=== PATIENT | female | born 1995 | race Hispanic/Latino ===

== ENCOUNTER 2017-04-29 21:44 | Emergency (ER) | payer OTHER ==
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
[2017-04-30] MEDS ORDERED: ZOFRAN ODT PO ONE (01:24)
[2017-04-30] MEDS ORDERED: MOTRIN PO ONE (01:25)
[2017-04-30] MEDS ORDERED: FLEXERIL PO ONE (01:25)
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
[2017-04-30 01:59] VITALS: BP 131/78
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
== END 2017-04-30 01:59 | disposition home or self-care (01) ==
LOC: ED 21:44
DX: F07.81 Postconcussional syndrome (principal); M79.631 Pain in right forearm; M25.561 Pain in right knee; V49.49XA Driver injured in collision with other motor vehicles in traffic accident, initial encounter; Y93.9 Activity, unspecified; Y92.9 Unspecified place or not applicable; Y99.9 Unspecified external cause status
CPT/HCPCS: 70450; 72125; 81025; Q0162

== ENCOUNTER 2017-08-23 12:18 | Emergency (ER) | payer MEDICAID, OTHER ==
[2017-08-23 13:11] VITALS: BP 129/82
[2017-08-23] MEDS ORDERED: TYLENOL PO ONE (18:21)
--- NOTE | 2017-08-23 18:29 | Emergency Department Report ---
- General Chief Complaint: Upper Respiratory Infection Stated Complaint: FLU LIKE S/S Time Seen by Provider: 08/23/17 18:06 Source: patient Mode of arrival: Ambulatory Limitations: No Limitations - History of Present Illness Initial Comments: pt is a 22 w/f who presents for uri cough green sputum, head congestion ear pain x 1 week, symptoms worse at night with cough and wheezing and noc fever subjection unknown quantification per patient is afebrile in triate today pt is 17 weeks . There is no nausea or vomiting. MD Complaint: cough, rhinorrhea, nasal congestion Onset/Timin -: week(s) Severity: moderate Severity scale (0 -10): 5 Consistency: intermittent Improves With: nothing Worsens With: nothing Context: sick contacts Associated Symptoms: fever, rhinorrhea, nasal congestion, cough. denies: myalgias, headache, nausea, vomiting, diarrhea, dysuria - Related Data Previous Rx's Medication Instructions Recorded Last Taken Type Cyclobenzaprine [Flexeril] 10 mg PO TID PRN #10 tablet 04/30/17 Unknown Rx Ibuprofen [Motrin] 800 mg PO Q8HR PRN #25 tablet 04/30/17 Unknown Rx Ondansetron [Zofran Odt] 4 mg PO Q8H PRN #10 tab.rapdis 04/30/17 Unknown Rx ALBUTEROL Inhaler [ProAir HFA 2 puff IH QID PRN #1 inhalation 08/23/17 Unknown Rx Inhaler] Acetaminophen 650 mg PO QID PRN #60 tablet 08/23/17 Unknown Rx Azithromycin [Zithromax Z-ZANDER] 250 mg PO DAILY #6 tab 08/23/17 Unknown Rx predniSONE [Deltasone] 40 mg PO QDAY #10 tab 08/23/17 Unknown Rx Allergies Allergy/AdvReac Type Severity Reaction Status Date / Time ceftazidime pentahydrate Allergy Unknown Verified 08/23/17 13:07 [From [facility]] ED Review of Systems ROS: Stated complaint: FLU LIKE S/S Other details as noted in HPI Constitutional: denies: chills, fever Eyes: denies: eye pain, eye discharge, vision change ENT: ear pain, congestion Respiratory: cough, wheezing. denies: shortness of breath Cardiovascular: denies: chest pain, palpitations Endocrine: no symptoms reported Gastrointestinal: as per HPI Genitourinary: denies: urgency, dysuria, discharge Musculoskeletal: denies: back pain, joint swelling, arthralgia Skin: denies: rash, lesions Neurological: denies: headache, weakness, paresthesias Psychiatric: denies: anxiety, depression Hematological/Lymphatic: denies: easy bleeding, easy bruising ED Past Medical Hx - Past Medical History Previous Medical History?: No - Surgical History Additional Surgical History: left ear - Social History Smoking Status: Never Smoker Substance Use Type: None - Medications Home Medications: Home Medications Medication Instructions Recorded Confirmed Last Taken Type Cyclobenzaprine [Flexeril] 10 mg PO TID PRN #10 tablet 04/30/17 Unknown Rx Ibuprofen [Motrin] 800 mg PO Q8HR PRN #25 tablet 04/30/17 Unknown Rx Ondansetron [Zofran Odt] 4 mg PO Q8H PRN #10 tab.rapdis 04/30/17 Unknown Rx ALBUTEROL Inhaler [ProAir HFA 2 puff IH QID PRN #1 inhalation 08/23/17 Unknown Rx Inhaler] Acetaminophen 650 mg PO QID PRN #60 tablet 08/23/17 Unknown Rx Azithromycin [Zithromax Z-ZANDER] 250 mg PO DAILY #6 tab 08/23/17 Unknown Rx predniSONE [Deltasone] 40 mg PO QDAY #10 tab 08/23/17 Unknown Rx ED Physical Exam - General Limitations: No Limitations - Head Head exam: Present: atraumatic, normocephalic - Eye Eye exam: Present: PERRL, EOMI Pupils: Present: normal accommodation - ENT ENT exam: Present: mucous membranes moist, normal external ear exam - Expanded ENT Exam Expanded TM/Canal exam: Erythema: Right TM, Left TM, Canal Tenderness: Right TM, Left TM Mouth exam: Absent: trismus Throat exam: Positive: tonsillar erythema. Negative: tonsillomegaly, tonsillar exudate, R peritonsillar mass, L peritonsillar mass - Neck Neck exam: Present: normal inspection, full ROM. Absent: tenderness, lymphadenopathy, thyromegaly - Respiratory Respiratory exam: Present: normal lung sounds bilaterally. Absent: respiratory distress, wheezes, rhonchi, stridor, chest wall tenderness - Cardiovascular Cardiovascular Exam: Present: regular rate, normal rhythm, normal heart sounds. Absent: systolic murmur, diastolic murmur, rubs, gallop - GI/Abdominal GI/Abdominal exam: Present: soft, normal bowel sounds. Absent: distended, tenderness, guarding, rebound, rigid, mass, bruit, hernia - Rectal Rectal exam: Present: deferred - Extremities Exam Extremities exam: Present: normal inspection - Back Exam Back exam: Present: normal inspection - Neurological Exam Neurological exam: Present: alert, oriented X3 - Psychiatric Psychiatric exam: Present: normal affect, normal mood - Skin Skin exam: Present: warm, dry, intact, normal color. Absent: rash ED Course Vital Signs 08/23/17 13:08 Temperature 98 F Pulse Rate 104 H Respiratory 20 Rate Blood Pressure 129/82 O2 Sat by Pulse 98 Oximetry ED Medical Decision Making - Medical Decision Making pt is a 22 w/f who presents for uri cough green sputum, head congestion ear pain x 1 week, symptoms worse at night with cough and wheezing and noc fever subjection unknown quantification per patient is afebrile in triate today pt is 17 weeks . There is no nausea or vomiting. exam: bilat tm erythema and pain with movement nose; bilat turbinate erythema boggy clear post nasal drip pharynx: moderatre erythema no exudate no lesion no stridor uvula midline lungs clear bilat all lobes no wheezing, plan: tx for brochitis as pt has hx of same pt will follow up with pcp and OBGYN tomorrow for follow up , azithromycin she in 2nd trimester, prednisone, Guaifenesin tyelnol, pt verbalized agreement and understanding of same. Critical care attestation.: If time is entered above; I have spent that time in minutes in the direct care of this critically ill patient, excluding procedure time. ED Disposition Clinical Impression: Bronchitis URI (upper respiratory infection) Qualifiers: URI type: acute nasopharyngitis (common cold) Qualified Code(s): J00 - Acute nasopharyngitis [common cold] Disposition: - TO HOME OR SELFCARE Is pt being admited?: No Does the pt Need Aspirin: No Condition: Good Instructions: Chronic Bronchitis (ED) Prescriptions: Acetaminophen 650 mg PO QID PRN #60 tablet PRN Reason: pain / fever ALBUTEROL Inhaler [ProAir HFA Inhaler] 2 puff IH QID PRN #1 inhalation PRN Reason: Shortness Of Breath Azithromycin [Zithromax Z-ZANDER] 250 mg PO DAILY #6 tab predniSONE [Deltasone] 40 mg PO QDAY #10 tab Referrals: PRIMARY CARE, [Referring] - 3-5 Days Forms: Work/School Release Form(ED) Time of Disposition: 18:41
== END 2017-08-24 05:46 | disposition home or self-care (01) ==
LOC: ED 12:18
DX: J40 Bronchitis, not specified as acute or chronic (principal); J00 Acute nasopharyngitis [common cold]; Z88.1 Allergy status to other antibiotic agents
CPT/HCPCS: 99282

== ENCOUNTER 2017-11-06 13:25 | Outpatient (CLI) | payer MEDICAID | END 2017-11-06 17:35 | disposition home or self-care (01) | LOC: TRG 13:25 → LAB 13:25 → TRG 17:24 | PROVIDERS: ATTEND Obstetrics & Gynecology | DX: O36.0130 Maternal care for anti-D [Rh] antibodies, third trimester, not applicable or unspecified (principal); Z3A.29 29 weeks gestation of pregnancy | CPT/HCPCS: 86850; 86900; 86901; 96372; J2790 ==

== ENCOUNTER 2017-12-16 15:28 | Outpatient (CLI) | payer MEDICAID ==
[2017-12-16] MEDS ORDERED: LACTATED RINGERS 500 ML IV ONE (16:19)
[2017-12-16 16:38] VITALS: BP 114/68
[2017-12-16 17:18] LABS: Bacteria,Urine 1+ /HPF (Negative); Bilirubin,Urine NEG (Negative); Blood,Urine NEG (Negative); Color,Urine Yellow (Yellow); Mucus,Urine 1+ /HPF; Protein,Urine <15 mg/dL mg/dL (Negative); Urobilinogen,Urine < 2.0 mg/dL (<2.0)
== END 2017-12-16 17:51 | disposition home or self-care (01) ==
LOC: TRG 15:28
PROVIDERS: ATTEND Obstetrics & Gynecology
DX: O47.03 False labor before 37 completed weeks of gestation, third trimester (principal); Z3A.35 35 weeks gestation of pregnancy
CPT/HCPCS: 59025; 81001

== ENCOUNTER 2018-01-29 20:02 | Inpatient (IN) | payer MEDICAID ==
[2018-01-29] MEDS ORDERED: XYLOCAINE 2% INFILTRATI ONE (21:37)
[2018-01-29] MEDS ORDERED: ePHEDrine SULFATE IV PRN (21:37)
[2018-01-29] MEDS ORDERED: MINERAL OIL PO PRN (21:37)
[2018-01-29] MEDS ORDERED: STADOL IV PRN (21:37)
[2018-01-29] MEDS ORDERED: BRETHINE IVP PRN (21:37)
[2018-01-29] MEDS ORDERED: ZOFRAN IV PRN (21:37)
[2018-01-29] MEDS ORDERED: BRETHINE SUB-Q PRN (21:37)
[2018-01-29] MEDS ORDERED: SUBLIMAZE IV PRN (21:37)
[2018-01-29] MEDS ORDERED: NARCAN 0.4 MG/1 ML IV PRN (21:37)
[2018-01-29 21:52] LABS: Hematocrit 36.5 % (30.3-42.9); Hemoglobin 12.2 gm/dl (10.1-14.3); Mean Corpuscular HGB Conc 33 % (30-34); Mean Corpuscular Hemoglobin 27 pg (28-32); Mean Corpuscular Volume 81 fl (79-97); Platelet Count 161 K/mm3 (140-440); Red Cell Distribution Width 14.6 % (13.2-15.2)
[2018-01-29] MEDS ORDERED: PITOCin/NS 30 UNIT/500ML 30 UNITS/500 ML BAG IV SCH (22:00)
[2018-01-29] MEDS: LACTATED RINGERS 1,000 ML IV SCH (22:00)
[2018-01-29] MEDS ORDERED: PITOCin/NS 20 UNIT/1000ML DRIP 20 UNITS/1,000 ML BAG IV SCH (22:00)
[2018-01-30] MEDS: LACTATED RINGERS 1,000 ML IV SCH ×2 (06:14→11:01)
--- NOTE | 2018-01-30 08:40 | History and Physical Report ---
History of Present Illness Date of examination: 01/30/18 Date of admission: 01/29/18 20:02 History of present illness: 22 yo ultrasound EDC 01/20/18 @ 41.3 weeks gestation presented last night for induction of labor. 3cm on admit Pitocin induction. 5cm currently. First trimester entry into care at 11 weeks gestation. care complicated by elevated 1hr GCT and negative 3hr GTT. [facility] followed for AC of 7%. GBS negative. Weak positive antibody. Past History Past Medical History: no pertinent history Past Surgical History: no surgical history Family/Genetic History: diabetes, heart disease, hypertension, other (lupus) Social history: single - Obstetrical History Expected Date of Delivery: 01/20/18 Actual Gestation: 41 Week(s) 3 Day(s) : 1 Medications and Allergies Allergies Allergy/AdvReac Type Severity Reaction Status Date / Time ceftazidime pentahydrate Allergy Severe Seizure Verified 12/16/17 16:17 [From [facility]] Home Medications Medication Instructions Recorded Confirmed Last Taken Type Cyclobenzaprine [Flexeril] 10 mg PO TID PRN #10 tablet 04/30/17 01/30/18 Unknown Rx Ibuprofen [Motrin] 800 mg PO Q8HR PRN #25 tablet 04/30/17 01/30/18 Unknown Rx Ondansetron [Zofran Odt] 4 mg PO Q8H PRN #10 tab.rapdis 04/30/17 01/30/18 Unknown Rx ALBUTEROL Inhaler [ProAir HFA 2 puff IH QID PRN #1 inhalation 08/23/17 01/30/18 Unknown Rx Inhaler] Acetaminophen 650 mg PO QID PRN #60 tablet 08/23/17 01/30/18 Unknown Rx Azithromycin [Zithromax Z-ZANDER] 250 mg PO DAILY #6 tab 08/23/17 01/30/18 Unknown Rx predniSONE [Deltasone] 40 mg PO QDAY #10 tab 08/23/17 01/30/18 Unknown Rx Active Meds: Active Medications Butorphanol Tartrate (Stadol) 2 mg IV Q2H PRN PRN Reason: Pain , Severe (7-10) Ephedrine Sulfate (Ephedrine Sulfate) 10 mg IV Q2M PRN PRN Reason: Hypotension Fentanyl (Sublimaze) 100 mcg IV Q2H PRN PRN Reason: Labor Pain Last Admin: 01/30/18 08:14 Dose: 100 mcg Lactated Ringer's (Lactated Ringers) 1,000 mls @ 125 mls/hr IV DIRECT LAURE Last Admin: 01/30/18 06:14 Dose: 125 mls/hr Oxytocin/Sodium Chloride (Pitocin/Ns 20 Unit/1000ml Drip) 20 units in 1,000 mls @ 125 mls/hr IV DIRECT LAURE Oxytocin/Sodium Chloride (Pitocin/Ns 30 Unit/500ml) 30 units in 500 mls @ 2 mls /hr IV TITR LAURE; Protocol Last Titration: 01/30/18 04:30 Dose: 10 ml/hr, 10 mls/hr Mineral Oil (Mineral Oil) 30 ml PO QHS PRN PRN Reason: Constipation Naloxone HCl (Narcan 0.4 Mg/1 Ml) 0.1 mg IV Q2MIN PRN PRN Reason: Res Rate </= 8 or 02 SAT < 92% Ondansetron HCl (Zofran) 4 mg IV Q8H PRN PRN Reason: Nausea And Vomiting Terbutaline Sulfate (Brethine) 0.25 mg SUB-Q ONCE PRN PRN Reason: Hyperstimulation/Hypertonicity Terbutaline Sulfate (Brethine) 0.25 mg IVP ONCE PRN PRN Reason: Hyperstimulation/Hypertonicity Review of Systems All systems: negative - Vital Signs Vital signs: Vital Signs Temp Pulse Resp BP 98.7 F 100 H 20 145/79 01/29/18 20:28 01/29/18 20:28 01/29/18 20:28 01/29/18 20:28 Temp Pulse Resp BP Pulse Ox 98.3 F 85 22 129/73 97 01/30/18 07:44 01/30/18 08:02 01/30/18 08:14 01/30/18 07:45 01/30/18 08:02 - Physical Exam Abdomen: Positive: normal appearance, soft. Negative: distention - Obstetrical FHR: category 1 Uterine Contraction Monitor Mode: External Cervical Dilatation: 5 Cervical Effacement Percentage: 80 station: 0 Uterine Contraction Frequency (min): 2 Uterine Contraction Duration: 40-60 Uterine Contraction Pattern: Regular Uterine Tone Measurement Phase: Resting Uterine Contraction Intensity: Moderate Results Result Diagrams: 01/29/18 21:20 Abnormal lab results 01/29/18 Range/Units 21:20 WBC 12.6 H (4.5-11.0) K/mm3 MCH 27 L (28-32) pg All other labs normal. Assessment and Plan A: IUP at 41 weeks Postdates Induction Active Labor P: AROM-clear Active Oracio't Pitocin
[2018-01-30] MEDS ORDERED: NARCAN 2 MG/2 ML IV PRN (11:23)
[2018-01-30] MEDS ORDERED: ePHEDrine SULFATE IV PRN (11:23)
[2018-01-30] MEDS ORDERED: fentaNYL-BUPIV 2 MCG/ML-0.125% 200 MCG/100 ML BAG EPIDURAL SCH (12:00)
--- NOTE | 2018-01-30 13:23 | Progress Note ---
Assessment and Plan A: IUP at 41 weeks Transitional labor Protracted Labor P: Increase Pitocin Primary C/S if same dilatation in 1 hr Subjective - Subjective Date of service: 01/30/18 Interval history: 22 yo ultrasound EDC 01/20/18 @ 41.3 weeks gestation presented last night for induction of labor. 3cm on admit Pitocin induction. 5cm currently. First trimester entry into care at 11 weeks gestation. care complicated by elevated 1hr GCT and negative 3hr GTT. M followed for AC of 7%. GBS negative. Weak positive antibody. Patient reports: new complaints (c/o vaginal pain), loss of fluid, movement normal, contractions, no vaginal bleeding Objective - Vital Signs Vital Signs: Vital Signs - 12hr 01/30/18 01/30/18 01/30/18 07:44 07:45 07:52 Temperature 98.3 F Pulse Rate 73 73 74 Respiratory 20 Rate Blood Pressure 129/73 Blood Pressure 129/73 [Left] O2 Sat by Pulse 97 97 Oximetry 01/30/18 01/30/18 01/30/18 07:57 08:02 08:14 Temperature Pulse Rate 75 85 Respiratory 22 Rate Blood Pressure Blood Pressure [Left] O2 Sat by Pulse 96 97 Oximetry 01/30/18 01/30/18 01/30/18 08:44 10:41 10:43 Temperature Pulse Rate 87 76 Respiratory 22 Rate Blood Pressure 141/66 Blood Pressure [Left] O2 Sat by Pulse 96 Oximetry 01/30/18 01/30/18 01/30/18 10:44 10:46 10:47 Temperature Pulse Rate 72 79 88 Respiratory Rate Blood Pressure 165/92 Blood Pressure [Left] O2 Sat by Pulse 94 96 Oximetry 01/30/18 01/30/18 01/30/18 10:50 10:51 10:52 Temperature Pulse Rate 85 78 82 Respiratory Rate Blood Pressure 151/79 145/79 Blood Pressure [Left] O2 Sat by Pulse 98 Oximetry 01/30/18 01/30/18 01/30/18 10:56 11:01 11:06 Temperature Pulse Rate 75 78 83 Respiratory Rate Blood Pressure Blood Pressure [Left] O2 Sat by Pulse 97 99 99 Oximetry 01/30/18 01/30/18 01/30/18 11:10 11:11 11:16 Temperature Pulse Rate 86 89 82 Respiratory Rate Blood Pressure 135/80 Blood Pressure [Left] O2 Sat by Pulse 99 99 Oximetry 01/30/18 01/30/18 01/30/18 11:21 11:26 11:31 Temperature Pulse Rate 88 85 79 Respiratory Rate Blood Pressure 134/84 Blood Pressure [Left] O2 Sat by Pulse 99 99 82 L Oximetry 01/30/18 01/30/18 01/30/18 11:36 11:40 11:41 Temperature Pulse Rate 80 80 84 Respiratory Rate Blood Pressure 141/85 Blood Pressure [Left] O2 Sat by Pulse 99 99 Oximetry 01/30/18 01/30/18 01/30/18 11:46 11:51 11:55 Temperature Pulse Rate 80 80 78 Respiratory Rate Blood Pressure 144/87 Blood Pressure [Left] O2 Sat by Pulse 99 98 Oximetry 01/30/18 01/30/18 01/30/18 11:56 12:01 12:06 Temperature Pulse Rate 82 79 79 Respiratory Rate Blood Pressure Blood Pressure [Left] O2 Sat by Pulse 99 98 98 Oximetry 01/30/18 01/30/18 01/30/18 12:10 12:11 12:16 Temperature Pulse Rate 80 84 78 Respiratory Rate Blood Pressure 145/89 Blood Pressure [Left] O2 Sat by Pulse 98 96 Oximetry 01/30/18 01/30/18 01/30/18 12:21 12:26 12:31 Temperature Pulse Rate 89 91 H 86 Respiratory Rate Blood Pressure 139/82 Blood Pressure [Left] O2 Sat by Pulse 97 96 96 Oximetry 01/30/18 01/30/18 01/30/18 12:36 12:40 12:41 Temperature Pulse Rate 81 83 83 Respiratory Rate Blood Pressure 135/84 Blood Pressure [Left] O2 Sat by Pulse 95 93 95 Oximetry 01/30/18 01/30/18 01/30/18 12:45 12:46 12:51 Temperature Pulse Rate 104 H 96 H 83 Respiratory Rate Blood Pressure Blood Pressure [Left] O2 Sat by Pulse 90 90 94 Oximetry 01/30/18 01/30/18 01/30/18 12:56 12:57 13:01 Temperature Pulse Rate 76 96 H 94 H Respiratory Rate Blood Pressure 133/95 Blood Pressure [Left] O2 Sat by Pulse 90 98 Oximetry 01/30/18 01/30/18 01/30/18 13:02 13:06 13:07 Temperature Pulse Rate 76 81 78 Respiratory Rate Blood Pressure Blood Pressure [Left] O2 Sat by Pulse 94 94 93 Oximetry 01/30/18 01/30/18 01/30/18 13:11 13:14 13:16 Temperature Pulse Rate 83 77 79 Respiratory Rate Blood Pressure 148/89 Blood Pressure [Left] O2 Sat by Pulse 93 94 95 Oximetry 01/30/18 01/30/18 13:19 13:21 Temperature Pulse Rate 80 79 Respiratory Rate Blood Pressure Blood Pressure [Left] O2 Sat by Pulse 94 95 Oximetry - Exam Breasts: deferred Abdomen: Present: normal appearance, soft FHR: category 1 Uterine Contraction Monitor Mode: External Cervical Dilatation: 9 Cervical Effacement Percentage: 90 station: 0 Uterine Contraction Frequency (min): 2 Uterine Contraction Duration: 60 Uterine Contraction Pattern: Regular Uterine Tone Measurement Phase: Resting Uterine Contraction Intensity: Moderate - Labs Labs: Abnormal Labs 01/29/18 21:20 WBC 12.6 H MCH 27 L Laboratory Results - last 24 hr 01/29/18 01/29/18 01/29/18 21:20 21:20 21:20 WBC 12.6 H RBC 4.50 Hgb 12.2 Hct 36.5 MCV 81 MCH 27 L MCHC 33 RDW 14.6 Plt Count 161 RPR Nonreactive Blood Type A NEGATIVE Antibody Screen Negative
[2018-01-30] MEDS ORDERED: PEPCID IV NR (14:00)
[2018-01-30] MEDS ORDERED: REGLAN IV NR (14:00)
[2018-01-30] MEDS ORDERED: LACTATED RINGERS 1,000 ML IV SCH (14:00)
[2018-01-30] MEDS ORDERED: PITOCin/NS 20 UNIT/1000ML DRIP 20 UNITS/1,000 ML BAG IV SCH ×2 (14:00→18:00)
[2018-01-30] MEDS ORDERED: BICITRA PO NR (14:00)
[2018-01-30] MEDS ORDERED: WATER FOR IRRIG STERILE IR ONE (15:56)
[2018-01-30] MEDS ORDERED: NACL 0.9% IR ONE (15:56)
[2018-01-30] MEDS ORDERED: ANCEF/STERILE WATER 2 GM/20 ML IV NR (16:00)
[2018-01-30] MEDS ORDERED: XYLOCAINE MPF 2% ONE ×5 (16:13→16:35)
[2018-01-30] MEDS ORDERED: MORPHINE ONE (16:37)
[2018-01-30] MEDS ORDERED: NACL 0.9% 1000 ML 1,000 ML ONE (17:04)
[2018-01-30] MEDS ORDERED: NORCO 5/325 PO PRN (17:15)
[2018-01-30] MEDS ORDERED: TUCKS PAD TP PRN (17:15)
[2018-01-30] MEDS ORDERED: NARCAN 0.4 MG/1 ML IV PRN (17:15)
[2018-01-30] MEDS ORDERED: SENOKOT PO PRN (17:15)
[2018-01-30] MEDS ORDERED: ANUCORT-HC PR PRN (17:15)
[2018-01-30] MEDS ORDERED: MYLICON PO PRN (17:15)
[2018-01-30] MEDS ORDERED: MORPHINE IV PRN (17:15)
[2018-01-30] MEDS ORDERED: MILK OF MAGNESIA PO PRN (17:15)
[2018-01-30] MEDS ORDERED: LANSINOH TP PRN (17:15)
[2018-01-30] MEDS ORDERED: PERCOCET 5/325 PO PRN (17:15)
[2018-01-30] MEDS ORDERED: TYLENOL PR PRN (17:15)
[2018-01-30] MEDS ORDERED: TORADOL IV PRN ×2 (17:15)
--- NOTE | 2018-01-30 17:22 | Operative Report ---
Operative Report Operative Report: DATE OF OPERATION: 01/30/2018 PREOPERATIVE DIAGNOSES: 1. Intrauterine gestation at 41 weeks 2. Arrest of descent. 3. Failed IOL 4. Persistent occiput posterior position. 5. Arrest of dilatation POSTOPERATIVE DIAGNOSES: 1-5 TREY 4. Delivery of viable, ruzjf-qig-nfmwtuiumia-age male . OPERATION PERFORMED: Primary low transverse section. SURGEON: Nikkie Rios MD ANESTHESIA: Epidural. COMPLICATIONS: None. ESTIMATED BLOOD LOSS: 900 mL. DRAINS: Rodas catheter to the bladder. SPECIMENS TO PATHOLOGY: Cord blood for routine testing. OPERATIVE FINDINGS: A viable male infant with Apgars of 8 and 9 and birthweight of 9 pounds 13 ounces was delivered from a cephalic presentation, persistent occiput posterior position. There was marked caput and molding present on the head. The cord contained 3 vessels. There was normal anterior fundal placenta. The amniotic fluid was clear. The uterus, fallopian tubes and ovaries were normal. DESCRIPTION OF OPERATION: The patient was brought to the operating suite in stable condition with epidural anesthesia on board and an indwelling catheter in place in the bladder. The patient was placed supine on the operating room table and rolled to her left side with a wedge. The abdomen was prepped and draped in standard fashion for section. After testing with forceps to assure an adequate anesthetic level, the surgery was commenced. We had counseled the patient extensively regarding the risks of the surgery including but not limited to stroke, embolus, phlebitis, pain, infection, hemorrhage, as well as injury to the and the internal organs such as the bowel, bladder, blood vessels, nerves, kidneys, ureters and pelvic organs. The patient was aware of the postoperative morbidity issues and recovery timeframes. The patient was aware she can form adhesions, which can result in obstruction of loop of bowel or ureter or chronic pain. She was aware that should she have hemorrhage and require blood transfusion, there was a small chance for exposure to hepatitis or HIV disease. With the scalpel, a Pfannenstiel skin incision was made. Dissection was carried down sharply through the subcutaneous tissues and fascia in a transverse plane with the scalpel, electrocautery and curved Puente scissors. The fascia was sharply freed up superiorly and inferiorly from the underlying rectus muscles, which were bluntly and sharply divided. The peritoneum was entered carefully in a clear space with a curved hemostat. The peritoneal incision was then extended vertically with Metzenbaum scissors. A retractor and bladder blade were placed. A bladder flap was created by incising transversely through the peritoneum and vesicouterine fold and then bluntly dissecting the bladder distally. With the scalpel, a low transverse hysterotomy was commenced. The serosa and myometrium were scored with the scalpel. The uterine cavity was actually entered bluntly with a curved hemostat. The uterine incision was then extended laterally with the power cleaner operator's fingers. An intrauterine hand was placed and the head of the infant was brought up out of the pelvis into the uterine incision. With fundal pressure, he was delivered without difficulty. The nasopharynx and oropharynx were suctioned. The cord was doubly clamped and transected. The infant was then handed off to the nursery personnel. Apgars were good at 8 and 9. A cord pH was obtained, which subsequently revealed a normal value. Further cord blood was collected for routine testing. Intravenous Pitocin and antibiotics were administered. The placenta was manually removed. The uterine cavity was then curetted with a dry sponge and freed of the remaining membranes. The edges of the uterine incision were grasped with Ghotra clamps. With the massage and the Pitocin, the uterus began to firm up normally. The uterine incision was then closed in 2 layers of 0 Vicryl sutures. The first suture was placed to the endometrium and myometrium. The second suture was placed through the endopelvic fascia and also reincorporated the bladder flap peritoneum. Peritoneal lavage was then performed. The pelvis and gutters were irrigated and suctioned and cleared of all blood and clots and amniotic fluid. The uterine incision was reinspected to assure hemostasis. Surgicel and Thisel placed. The uterus, tubes and ovaries were inspected and were normal. Once we were satisfied with the hemostasis, attention was turned to closure of the abdominal incision. The peritoneum, muscles and fascia were closed in layers using 0-Vicryl sutures. The subcutaneous tissue was closed with 3-0 plain sutures. The skin was closed with a subcuticular suture of 4-0 Vicryl followed by benzoin, Steri-Strips and a Telfa dressing. The patient was moved to the recovery room in stable condition with the Rodas catheter draining clear urine. Instruments, sponge and needle counts were reported as correct. Estimated blood loss was 900 mL. There were no complications.
--- NOTE | 2018-01-30 17:23 | Procedure Note ---
OB Delivery Note - Delivery Date of Delivery: 01/30/18 Surgeon: ROSANNA GERMAN Estimated blood loss: other (900cc) - Section Preop diagnosis: arrest of descent, arrest of dilation Postop diagnosis: same section procedure: section Disposition: PACU Complications: none - Infant A at 1 minute: 8 at 5 minutes: 9 Infant Gender: Male
[2018-01-30] MEDS ORDERED: SODIUM CHLORIDE FLUSH SYRINGE 10 ML IV SCH (18:00)
[2018-01-30] MEDS ORDERED: D5LR 1,000 ML IV SCH (18:00)
[2018-01-31] MEDS: MOTRIN PO PRN ×3 (05:59→20:12)
[2018-01-31] MEDS ORDERED: BOOSTRIX IM ONE (06:00)
[2018-01-31 07:42] LABS: Hematocrit 30.5 % (30.3-42.9); Hemoglobin 10.3 gm/dl (10.1-14.3)
--- NOTE | 2018-01-31 08:27 | Progress Note ---
Assessment and Plan A: POD#1 s/p primary section at 41 wks P: Routine postop advances Subjective - Subjective Date of service: 01/31/18 Principal diagnosis: s/p primary Interval history: Pt without unusual complaints. + flatus Patient reports: appetite normal, pain well controlled, flatus, no voiding normally (joel just removed ), no bowel movement, no ambulating normally ( minimally to bathroo, ) Union: doing well Objective - Vital Signs Latest vital signs: Vital Signs Temp Pulse Resp BP BP Pulse Ox 01/31/18 06:30 98.7 F 100 H 18 01/31/18 05:59 18 01/31/18 04:10 100.5 F H 125 H 20 130/79 01/31/18 00:00 98.4 F 98 H 20 129/80 01/30/18 22:50 18 01/30/18 22:20 18 01/30/18 19:05 99 F 89 20 123/79 01/30/18 18:20 98.8 F 88 20 144/81 96 01/30/18 18:15 78 23 126/74 97 01/30/18 18:10 78 25 H 134/76 97 01/30/18 18:05 75 23 126/78 97 01/30/18 18:00 73 22 135/79 97 01/30/18 17:55 75 23 134/76 97 01/30/18 17:50 77 21 130/79 97 01/30/18 17:45 71 19 139/75 97 01/30/18 17:39 74 21 138/82 97 01/30/18 17:33 77 22 97 01/30/18 17:30 72 18 127/78 97 01/30/18 17:25 78 18 132/78 97 01/30/18 17:20 82 18 130/78 97 01/30/18 17:13 99.1 F 94 H 16 140/83 97 01/30/18 15:40 81 133/86 01/30/18 15:27 88 137/87 01/30/18 15:20 92 H 94 01/30/18 15:16 96 H 96 01/30/18 15:11 89 97 01/30/18 15:10 89 136/84 94 01/30/18 15:06 89 95 01/30/18 15:04 91 H 94 06/12/18 15:01 100 H 96 0618 14:56 93 H 136/90 97 18 14:55 94 H 94 18 14:51 83 92 18 14:50 97 H 93 18 14:46 86 97 18 14:41 90 136/83 94 18 14:40 94 H 93 18 14:36 91 H 96 18 14:31 102 H 96 18 14:26 98 H 137/93 97 18 14:23 86 18 94 01/30/18 14:21 96 H 98 01/30/18 14:16 114 H 97 01/30/18 14:14 87 94 01/30/18 14:11 97 H 96 01/30/18 14:10 80 122/68 01/30/18 14:09 78 93 01/30/18 14:06 90 96 01/30/18 14:02 94 H 94 01/30/18 14:01 107 H 95 18 13:56 87 94 18 13:55 94 H 143/98 18 13:51 85 94 18 13:46 79 94 18 13:41 100 H 94 18 13:40 97 H 136/86 94 18 13:36 91 H 97 18 13:31 96 H 94 18 13:30 81 94 18 13:26 82 94 18 13:25 83 141/93 18 13:24 102 H 94 18 13:21 79 95 18 13:19 80 94 18 13:16 79 95 18 13:14 77 94 1218 13:11 83 148/89 93 18 13:07 78 93 18 13:06 81 94 18 13:02 76 94 18 13:01 94 H 98 18 12:57 96 H 133/95 18 12:56 76 90 1218 12:51 83 94 06/12/18 12:46 96 H 90 06/12/18 12:45 104 H 90 01/30/18 12:41 83 95 01/30/18 12:40 83 135/84 93 01/30/18 12:36 81 95 01/30/18 12:31 86 96 01/30/18 12:26 91 H 139/82 96 01/30/18 12:21 89 97 01/30/18 12:16 78 96 01/30/18 12:11 84 98 01/30/18 12:10 80 145/89 01/30/18 12:06 79 98 01/30/18 12:01 79 98 01/30/18 11:56 82 99 01/30/18 11:55 78 144/87 01/30/18 11:51 80 98 01/30/18 11:46 80 99 01/30/18 11:41 84 99 01/30/18 11:40 80 141/85 01/30/18 11:36 80 99 01/30/18 11:31 79 82 L 01/30/18 11:26 85 134/84 99 01/30/18 11:21 88 99 01/30/18 11:16 82 99 01/30/18 11:11 89 99 01/30/18 11:10 86 135/80 01/30/18 11:06 83 99 01/30/18 11:01 78 99 01/30/18 10:56 75 97 01/30/18 10:52 82 145/79 01/30/18 10:51 78 98 01/30/18 10:50 85 151/79 01/30/18 10:47 88 165/92 01/30/18 10:46 79 96 01/30/18 10:44 72 94 01/30/18 10:43 76 141/66 01/30/18 10:41 87 96 01/30/18 08:44 22 Intake and Output 01/30/18 01/31/18 01/31/18 22:59 06:59 14:59 Intake Total 1999 480 Output Total 700 1950 Balance 1300 -1470 Intake: IV 2000 Oral 240 Intake, Free Water 240 Output: Urine 700 1950 Void 1950 Other: Total, Intake Amount 240 Total, Output Amount 800 Estimated Blood Loss 900 - Exam Breasts: Present: deferred Cardiovascular: Present: Regular rate Lungs: Present: Clear to auscultation Abdomen: Present: soft (obese ) Uterus: Present: fundal height at umbilicus Extremities: Present: edema (trace ) Incision: Present: dressed
[2018-01-31] MEDS: PRENATAL VITAMIN PO SCH (11:55)
[2018-01-31] MEDS: FEOSOL PO SCH (11:55)
[2018-01-31] MEDS: PERCOCET 5/325 PO PRN (13:05)
[2018-01-31] MEDS ORDERED: M-M-R II VACCINE SUB-Q ONE (17:16)
[2018-01-31 20:16] LABS: Hematocrit 28.5 % (30.3-42.9); Hemoglobin 9.6 gm/dl (10.1-14.3); Mean Corpuscular HGB Conc 34 % (30-34); Mean Corpuscular Hemoglobin 27 pg (28-32); Mean Corpuscular Volume 80 fl (79-97); Platelet Count 159 K/mm3 (140-440); Red Blood Count 3.54 M/mm3 (3.65-5.03); Red Cell Distribution Width 14.4 % (13.2-15.2)
[2018-01-31 20:54] LABS: Alanine Aminotransferase 8 units/L (7-56); Uric Acid 4.6 mg/dL (3.5-7.6)
[2018-01-31 22:09] LABS: Bacteria,Urine 1+ /HPF (Negative); Mucus,Urine FEW /HPF
[2018-01-31 22:13] LABS: RBC,Urine > 182.0 /HPF (0.0-6.0)
[2018-01-31 22:16] LABS: Bilirubin,Urine NEG (Negative); Blood,Urine LG (Negative); Calcium Oxalate Crystals,Urine 2+; Color,Urine Yellow (Yellow); Hyaline Casts,Urine 1 /LPF; Protein,Urine <15 mg/dL mg/dL (Negative)
--- NOTE | 2018-01-31 22:32 | Event Note ---
Date: 01/31/18 Pt with worsening tachycardia. Per nurse pt not taking pain medication regularly but she denies pain. Hypertensive as well. PIH panel drawn. TSH drawn. EKG ordered. Give fluid bolus. Continue to monitor clinically.
[2018-01-31] MEDS: LACTATED RINGERS 1,000 ML IV SCH (23:19)
[2018-01-31 23:26] LABS: Free T4 (Free Thyroxine) 1.2 ng/dL (0.76-1.46)
[2018-02-01] MEDS: LACTATED RINGERS 1,000 ML IV SCH (06:44)
[2018-02-01] MEDS: MOTRIN PO PRN ×2 (07:59→17:47)
--- NOTE | 2018-02-01 08:54 | Progress Note ---
Assessment and Plan O; Pulse: 108-123 low grade temp 100.0 A: POD # 2 S/P primary C/S Tachycardia Maternal Temp P: MD consult consult ID-Dr. Hansen Subjective - Subjective Date of service: 02/01/18 Principal diagnosis: s/p primary Interval history: 22 yo ultrasound EDC 01/20/18 @ 41.3 weeks gestation presented last night for induction of labor. 3cm on admit Pitocin induction. 5cm currently. First trimester entry into care at 11 weeks gestation. care complicated by elevated 1hr GCT and negative 3hr GTT. [facility] followed for AC of 7%. GBS negative. Weak positive antibody. Patient reports: appetite normal, voiding normally, pain well controlled, flatus , ambulating normally : doing well, other (jaundice) Objective - Vital Signs Latest vital signs: Vital Signs Temp Pulse Resp BP Pulse Ox 02/01/18 07:59 18 02/01/18 04:06 98.2 F 108 H 20 127/85 97 02/01/18 00:00 98.4 F 107 H 20 129/86 98 01/31/18 21:45 100 F H 123 H 18 143/87 97 01/31/18 21:12 18 01/31/18 20:12 18 01/31/18 16:19 98.5 F 122 H 20 155/84 01/31/18 12:00 98.5 F 113 H 18 169/96 Intake and Output 01/31/18 02/01/18 02/01/18 22:59 06:59 14:59 Intake Total 240 1167.083 Output Total 700 Balance -460 1167.083 Intake: IV 927.083 Lactated Ringers 1,000 ml 927.083 @ 125 mls/hr IV DIRECT LAURE Rx#:[id number] Oral 240 240 Output: Urine 700 Void 700 Other: Total, Intake Amount 240 240 Total, Output Amount 400 # Voids Void 1 - Exam Breasts: Present: normal, Cardiovascular: Present: Regular rate Lungs: Present: Clear to auscultation Abdomen: Present: normal appearance, soft. Absent: distention, tenderness Uterus: Present: normal, firm, fundal height below umbilicus. Absent: bogginess , tenderness Extremities: Present: normal Incision: Present: normal, dry, intact - Labs Labs: Abnormal lab results 01/31/18 01/31/18 01/31/18 Range/Units 19:23 19:23 19:23 WBC 19.5 H (4.5-11.0) K/mm3 RBC 3.54 L (3.65-5.03) M/mm3 Hgb 9.6 L (10.1-14.3) gm/dl Hct 28.5 L (30.3-42.9) % MCH 27 L (28-32) pg Creatinine 0.6 L (0.7-1.2) mg/dL Lactate Dehydrogenase 214 H (91-180) units/L TSH 4.780 H (0.270-4.200) mlU/mL Urine WBC (Auto) (0.0-6.0) /HPF 01/31/18 01/31/18 Range/Units 22:45 Unknown WBC (4.5-11.0) K/mm3 RBC (3.65-5.03) M/mm3 Hgb (10.1-14.3) gm/dl Hct (30.3-42.9) % MCH (28-32) pg Creatinine (0.7-1.2) mg/dL Lactate Dehydrogenase (91-180) units/L TSH 6.150 H (0.270-4.200) mlU/mL Urine WBC (Auto) 16.0 H (0.0-6.0) /HPF
[2018-02-01] MEDS: PRENATAL VITAMIN PO SCH (10:17)
[2018-02-01] MEDS: FEOSOL PO SCH (10:17)
--- NOTE | 2018-02-01 15:09 | Consultation ---
History of Present Illness - Reason for Consult Consult date: 02/01/18 tachycardia, low grade fever Requesting physician: ROSANNA GERMAN - History of Present Illness 22 yo female admitted on 01/29/18 with 41 weeks gestation for induction of labor. care complicated by elevated 1hr GCT and negative 3hr GTT. M followed for AC of 7%. GBS negative. Weak positive antibody. Upon admission, temp 98.7, HR 100, R 20, BP 145/79, WBC 12.6. Hg 12.2. Plat 161. Patient underwent C section on due to failure to progress on 02/01/18. By 01/31/18 she started spiking fever at 100.5, HR 125, WBC 19.5K. A US showed wbc 16 and small leukocyte esterase. Patient is allergic to fortaz causing seizures. Microbiology: none Current Antimicrobials: none Previous Antimicrobials: Past History Past Surgical History: No surgical history Social history: single Medications and Allergies Allergies Allergy/AdvReac Type Severity Reaction Status Date / Time ceftazidime pentahydrate Allergy Severe Seizure Verified 12/16/17 16:17 [From Fortaz] Home Medications Medication Instructions Recorded Confirmed Last Taken Type Cyclobenzaprine [Flexeril] 10 mg PO TID PRN #10 tablet 04/30/17 01/30/18 Unknown Rx Ibuprofen [Motrin] 800 mg PO Q8HR PRN #25 tablet 04/30/17 01/30/18 Unknown Rx Ondansetron [Zofran Odt] 4 mg PO Q8H PRN #10 tab.rapdis 04/30/17 01/30/18 Unknown Rx ALBUTEROL Inhaler [ProAir HFA 2 puff IH QID PRN #1 inhalation 08/23/17 01/30/18 Unknown Rx Inhaler] Acetaminophen 650 mg PO QID PRN #60 tablet 08/23/17 01/30/18 Unknown Rx Azithromycin [Zithromax Z-ZANDER] 250 mg PO DAILY #6 tab 08/23/17 01/30/18 Unknown Rx predniSONE [Deltasone] 40 mg PO QDAY #10 tab 08/23/17 01/30/18 Unknown Rx Ibuprofen [Motrin] 600 mg PO Q8H PRN #30 tablet 01/30/18 Unknown Rx oxyCODONE /ACETAMINOPHEN [Percocet 1 tab PO Q6HR PRN #30 tablet 01/30/18 Unknown Rx 5/325] Active Meds: Active Medications Acetaminophen (Tylenol) 650 mg IA Q4H PRN PRN Reason: Fever >100.5/GUARDADO Ephedrine Sulfate (Ephedrine Sulfate) 10 mg IV Q2M PRN PRN Reason: Hypotension Ferrous Sulfate (Feosol) 325 mg PO QDAY [facility] Last Admin: 02/01/18 10:17 Dose: 325 mg Hydrocortisone Acetate (Anucort-Hc) 25 mg IA BID PRN PRN Reason: Hemorrhoids Fentanyl/Bupivacaine/Sodium Chlor (Fentanyl-Bupiv 2 Mcg/Ml-0.125%) 200 mcg in 100 mls @ 12 mls/hr EPIDURAL TITR LAURE; Protocol Last Admin: 01/30/18 12:23 Dose: 12 mls/hr Oxytocin/Sodium Chloride (Pitocin/Ns 20 Unit/1000ml Drip) 20 units in 1,000 mls @ 250 mls/hr IV DIRECT LAURE Lactated Ringer's (Lactated Ringers) 1,000 mls @ 125 mls/hr IV DIRECT LAURE Last Admin: 02/01/18 06:44 Dose: 125 mls/hr Ibuprofen (Motrin) 800 mg PO Q6H PRN PRN Reason: Pain, Mild (1-3) Last Admin: 02/01/18 07:59 Dose: 800 mg Ketorolac Tromethamine (Toradol) 15 mg IV Q6H PRN PRN Reason: Pain, Mild (1-3) Stop: 02/04/18 17:14 Ketorolac Tromethamine (Toradol) 30 mg IV Q6H PRN PRN Reason: Pain, Moderate (4-6) Stop: 02/04/18 17:14 Last Admin: 01/30/18 22:20 Dose: 30 mg Magnesium Hydroxide (Milk Of Magnesia) 30 ml PO QHS PRN PRN Reason: Constip Unrelieved By Senna Morphine Sulfate (Morphine) 2 mg IV Q4H PRN PRN Reason: Pain, Moderate (4-6) Multi-Ingredient Ointment (Lansinoh) 1 applic TP PRN PRN PRN Reason: dryness/cracking Multivitamins/Iron/Calcium ( Vitamin) 1 each PO QDAY LAURE Last Admin: 02/01/18 10:17 Dose: 1 each Naloxone HCl (Narcan 0.4 Mg/1 Ml) 0.1 mg IV Q2MIN PRN PRN Reason: Res Rate </= 8 or 02 SAT < 92% Ondansetron HCl (Zofran) 4 mg IV Q8H PRN PRN Reason: Nausea And Vomiting Oxycodone/Acetaminophen (Percocet 5/325) 2 tab PO Q4H PRN PRN Reason: Pain, Moderate (4-6) Last Admin: 01/31/18 13:05 Dose: 1 tab Senna (Senokot) 17.2 mg PO QHS PRN PRN Reason: Constipation Simethicone (Mylicon) 80 mg PO Q6H PRN PRN Reason: Gas pain Sodium Chloride (Sodium Chloride Flush Syringe 10 Ml) 10 ml IV PRN LAURE Witch Mariama/Glycerin (Tucks Pad) 1 each TP PRN PRN PRN Reason: Hemorrhoids/cleansing/soothing Physical Examination - Physical Exam Narrative exam: General appearance: Alert in NAD, conversant Eyes: anicteric sclerae, moist conjunctivae; no lid-lag; PERRLA HENT: Atraumatic; oropharynx clear with moist mucous membranes and no mucosal ulcerations/no oral thrush; normal hard and soft palate. Normal external ears. Neck: Trachea midline; supple, no thyromegaly or lymphadenopathy Lungs: CTA, with normal respiratory effort and no intercostal retractions CV: RRR, no murmurs Abdomen: Soft, mild tenderness +Csection wound with no drainage, no erythema Extremities: No peripheral edema or extremity lymphadenopathy Skin: Normal temperature, turgor and texture; no rash, ulcers or subcutaneous nodules Psych: Appropriate affect, alert and oriented to person, place and time. Neuro: alert and oriented x 3. Moving all extermities Lines: No CVL / PICC - Constitutional Vitals: Vital Signs Temp Pulse Resp BP Pulse Ox 98.6 F 87 18 121/75 97 02/01/18 08:30 02/01/18 08:30 02/01/18 08:30 02/01/18 08:30 02/01/18 04:06 Temperature -Last 24 Hours Temperature 98.6 F Temperature 98.2 F Temperature 98.4 F Temperature 100 F Temperature 98.5 F Results - Labs CBC & Chem 7: 01/31/18 19:23 01/31/18 19:23 Labs: Abnormal lab results 01/31/18 01/31/18 01/31/18 Range/Units 19:23 19:23 19:23 WBC 19.5 H (4.5-11.0) K/mm3 RBC 3.54 L (3.65-5.03) M/mm3 Hgb 9.6 L (10.1-14.3) gm/dl Hct 28.5 L (30.3-42.9) % MCH 27 L (28-32) pg Creatinine 0.6 L (0.7-1.2) mg/dL Lactate Dehydrogenase 214 H (91-180) units/L TSH 4.780 H (0.270-4.200) mlU/mL Urine WBC (Auto) (0.0-6.0) /HPF 01/31/18 01/31/18 Range/Units 22:45 Unknown WBC (4.5-11.0) K/mm3 RBC (3.65-5.03) M/mm3 Hgb (10.1-14.3) gm/dl Hct (30.3-42.9) % MCH (28-32) pg Creatinine (0.7-1.2) mg/dL Lactate Dehydrogenase (91-180) units/L TSH 6.150 H (0.270-4.200) mlU/mL Urine WBC (Auto) 16.0 H (0.0-6.0) /HPF Assessment and Plan Assessment: 1) Sepsis: Present on admission, manifested by tachycardia, leukocytosis, then fever at 1005 and wbc up to 19K. Etiology most likely UTI. 2) UTI: UA showed wbc 16 and small leukocyte esterase. 3) 41 weeks gestation s/p C section due to failure to progress on 02/01/18. 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 Plan: -obtain blood cultures, urine culture -obtain CXR -obtain renal US eval for pyelo or hydro -start aztreonam to cover UTI for now -all orders placed -monitor fever and leukocytosis Thank you for your consultation, will follow up with you. Joanne West MD Infectious Diseases Specialist [facility] ([facility] M [phone] O [phone]
[2018-02-01] MEDS: NACL 0.9% IV SCH ×2 (16:55→17:47)
[2018-02-01] MEDS: AZACTAM IV SCH ×2 (16:55→17:47)
--- NOTE | 2018-02-01 17:41 | XRay Report ---
FINAL REPORT EXAM: XR CHEST ROUTINE 2V HISTORY: new fever eval for pneumonia, aspiration pneumonit TECHNIQUE: Frontal and lateral chest radiographs. PRIORS: None. FINDINGS: The cardiomediastinal silhouette is normal. No focal consolidation. No pleural effusion. No pneumothorax. No acute osseous abnormality. IMPRESSION: No acute cardiopulmonary process.
--- NOTE | 2018-02-01 17:51 | Ultrasound Report ---
FINAL REPORT EXAM: US RENAL BILAT HISTORY: eval for pyelonephritis, hydro, stones TECHNIQUE: Grayscale and color doppler ultrasound imaging of the kidneys and urinary bladder was performed. PRIORS: None. FINDINGS: Kidneys: There is very mild bilateral hydronephrosis. There is mild left renal cortical thinning. No right renal cortical thinning. No renal masses, cysts or calculi. The right kidney measures 12.3 x 5.7 x 6.0 centimeters. The left kidney measures 12.2 x 5.9 x 6.7 centimeters. Urinary bladder: No wall thickening or internal debris. IMPRESSION: 1. Mild bilateral hydronephrosis. 2. Mild left renal cortical thinning.
[2018-02-02] MEDS: NACL 0.9% IV SCH ×4 (04:07→22:34)
[2018-02-02] MEDS: AZACTAM IV SCH ×4 (04:07→22:34)
--- NOTE | 2018-02-02 08:28 | Progress Note ---
Assessment and Plan A: POD#3 s/p primary section at 41 wks Suboptimal pain control, pt not taking medication as prescribed Urosepsis s/p ID consult, on Aztreonam P: Continue IV antibiotics Consider discontinuation of IV antibiotics tomorrow with transition to PO Closely monitor clinical status Subjective - Subjective Date of service: 02/02/18 Principal diagnosis: s/p primary Interval history: Pt c/o abdominal pain but she is not taking any narcotic pain medication because she is afraid of being "drugged up." +flatus. + BM. Afebrile overnight. Diagnosed with Urosepsis and started on Aztreonam yesterday Patient reports: appetite normal, voiding normally, flatus, bowel movement, pain poorly controlled, ambulating normally [place]: doing well (under bili lights in the room ) Objective - Vital Signs Latest vital signs: Vital Signs Temp Pulse Resp BP Pulse Ox 02/02/18 00:55 98.0 F 93 H 20 132/83 02/01/18 17:47 18 02/01/18 16:53 99.8 F H 126 H 18 133/80 97 02/01/18 08:30 98.6 F 87 18 121/75 Intake and Output 02/01/18 02/02/18 02/02/18 22:59 06:59 14:59 Intake Total 490 240 Balance 490 240 Intake: IV 50 Azactam 1,000 mg In NaCl 50 0.9% 50 ml @ 50 mls/hr IV Q8HR [facility] Rx#:[id number] Oral 440 240 Other: Total, Intake Amount 200 240 # Voids Void 1 1 # Bowel Movements 1 - Exam Breasts: Present: deferred Cardiovascular: Present: Regular rate Lungs: Present: Clear to auscultation Abdomen: Present: soft (obese ) Uterus: Present: fundal height at umbilicus Extremities: Present: normal
[2018-02-02 09:18] LABS: Basophils % (Auto) 0.2 % (0.0-1.8); Eosinophils # (Auto) 0.4 K/mm3 (0.0-0.4); Eosinophils % (Auto) 3.3 % (0.0-4.3); Hematocrit 28.8 % (30.3-42.9); Hemoglobin 9.6 gm/dl (10.1-14.3); Lymphocytes # (Auto) 1.7 K/mm3 (1.2-5.4); Lymphocytes % (Auto) 15.4 % (13.4-35.0); Mean Corpuscular HGB Conc 33 % (30-34); Mean Corpuscular Hemoglobin 27 pg (28-32); Mean Corpuscular Volume 83 fl (79-97); Monocytes # (Auto) 0.5 K/mm3 (0.0-0.8); Monocytes % (Auto) 4.5 % (0.0-7.3); Platelet Count 226 K/mm3 (140-440); Red Blood Count 3.49 M/mm3 (3.65-5.03); Red Cell Distribution Width 14.6 % (13.2-15.2)
[2018-02-02] MEDS: FEOSOL PO SCH (09:56)
[2018-02-02] MEDS: PRENATAL VITAMIN PO SCH (09:56)
[2018-02-02] MEDS: PERCOCET 5/325 PO PRN (09:56)
--- NOTE | 2018-02-02 11:56 | Progress Note ---
Assessment and Plan Assessment: 1) Sepsis: better, fever resolved, leukocytosis improving. Etiology most likely UTI. -blood cx so far neg -CXR neg 2) UTI: UA showed wbc 16 and small leukocyte esterase. Urine cx 10-100K multiple sp. Renal US mild bilateral hydronephrosis, mild left renal cortical thinning 3) 41 weeks gestation s/p C section due to failure to progress on 02/01/18. 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 She takes ampicillin po Plan: -f/u blood cultures -continue aztreonam -monitor fever and leukocytosis Ok to d/c home on augmentin 875 mg po q12h total 7 days until 02/07 Thank you for your consultation, will follow up with you. Joanne West MD Infectious Diseases Specialist [facility], [place] [facility] M [phone] O [phone] Subjective Date of service: 02/02/18 Principal diagnosis: s/p primary Interval history: feels better, no fever. eating ok, she is breast feeding, tmax 99.8 Microbiology: blood cx 02/01 ngtd urine cx 02/01 10-100 multiple sp Current Antimicrobials: aztreonam 02/01 Previous Antimicrobials: Objective - Exam Narrative Exam: General appearance: Alert in NAD, conversant Eyes: anicteric sclerae, moist conjunctivae; no lid-lag; PERRLA HENT: Atraumatic; oropharynx clear with moist mucous membranes and no mucosal ulcerations/no oral thrush; normal hard and soft palate. Normal external ears. Neck: Trachea midline; supple, no thyromegaly or lymphadenopathy Lungs: CTA, with normal respiratory effort and no intercostal retractions CV: RRR, no murmurs Abdomen: Soft, mild tenderness +Csection wound with no drainage, no erythema Extremities: No peripheral edema or extremity lymphadenopathy Skin: Normal temperature, turgor and texture; no rash, ulcers or subcutaneous nodules Psych: Appropriate affect, alert and oriented to person, place and time. Neuro: alert and oriented x 3. Moving all extermities Lines: No CVL / PICC - Constitutional Vitals: Vital Signs Temp Pulse Resp BP Pulse Ox 98.0 F 93 H 20 132/83 97 02/02/18 00:55 02/02/18 00:55 02/02/18 00:55 02/02/18 00:55 02/01/18 16:53 Temperature -Last 24 Hours Temperature 98.0 F Temperature 99.8 F - Labs CBC & Chem 7: 02/02/18 09:00 01/31/18 19:23 Labs: Abnormal lab results 02/02/18 Range/Units 09:00 WBC 11.2 H (4.5-11.0) K/mm3 RBC 3.49 L (3.65-5.03) M/mm3 Hgb 9.6 L (10.1-14.3) gm/dl Hct 28.8 L (30.3-42.9) % MCH 27 L (28-32) pg Seg Neutrophils % 76.6 H (40.0-70.0) % Seg Neutrophils # 8.6 H (1.8-7.7) K/mm3
[2018-02-03] MEDS: MOTRIN PO PRN (01:30)
[2018-02-03] MEDS: NACL 0.9% IV SCH (06:56)
[2018-02-03] MEDS: AZACTAM IV SCH (06:56)
[2018-02-03 09:46] VITALS: BP 124/79
--- NOTE | 2018-02-03 13:34 | Progress Note ---
Assessment and Plan POD 4 s/p primary ltcs with subsequent sepsis. Now doing well. Plan for discharge on today Subjective - Subjective Date of service: 02/03/18 Principal diagnosis: s/p primary Interval history: Patient had urosepsis but has no further symptoms and has been afebrile for over 24 hours. Patient reports: appetite normal, voiding normally, pain well controlled, ambulating normally, other (pumping) [place]: doing well Objective - Vital Signs Latest vital signs: Vital Signs Temp Pulse Resp BP 02/03/18 08:00 98.7 F 68 18 124/79 02/03/18 01:20 98.6 F 98 H 20 127/80 02/02/18 16:00 98.7 F 66 16 121/78 Intake and Output 02/02/18 02/03/18 02/03/18 22:59 06:59 14:59 Intake Total 710 290 300 Balance 710 290 300 Intake: IV 50 50 Azactam 1,000 mg In NaCl 50 50 0.9% 50 ml @ 50 mls/hr IV Q8HR [facility] Rx#:[id number] Intake, Free Water 660 240 300 Other: # Voids Void 2 2 - Exam Breasts: Present: deferred Cardiovascular: Present: Regular rate, Normal S1, Normal S2 Lungs: Present: Clear to auscultation, Normal air movement Abdomen: Present: normal appearance, soft, normal bowel sounds Uterus: Present: normal, firm Extremities: Present: normal Incision: Present: normal, dry, intact
--- NOTE | 2018-02-03 13:36 | Discharge Summary ---
Providers - Providers Date of Admission: 01/29/18 20:02 Date of discharge: 02/03/18 Attending physician: PJ ELISE 02/01/18 12:39 Consult to Physician [CONS] Urgent Comment: Consulting Provider: JAVIER REYNOSO Physician Instructions: Reason For Exam: tachycardia, low grade fever Primary care physician: PJ ELISE Hospitalization Reason for admission: induction of labor Delivery: Procedure: primary low transverse Procedure details: see op report Incision: normal, dry, intact Other procedures: none Discharge diagnosis: IUP at term delivered [place] baby: male Hospital course: Complicated by UTI and sepsis Condition at discharge: Good Disposition: DC-01 TO HOME OR SELFCARE Plan - Discharge Medications Prescriptions: Ibuprofen [Motrin] 600 mg PO Q8H PRN #30 tablet PRN Reason: Pain oxyCODONE /ACETAMINOPHEN [Percocet 5/325] 1 tab PO Q6HR PRN #30 tablet PRN Reason: Pain - Provider Discharge Summary Activity: routine, no sex for 6 weeks, no heavy lifting 4 weeks, no strenuous exercise Diet: routine Instructions: routine Additional instructions: [] Smoking cessation referral if applicable(refer to patient education folder for contact #) [] Refer to [facility] Booklet Call your doctor immediately for: * Fever > 100.5 * Heavy vaginal bleeding ( >1 pad per hour) * Severe persistent headache * Shortness of breath * Reddened, hot, painful area to leg or breast * Drainage or odor from incision. * Keep incision clean and dry at all times and follow doctor's instructions regarding bathing/showering - Follow up plan Follow up: PJ ELISE MD [Primary Care Provider] - 7 Days
== END 2018-02-03 16:00 | disposition home or self-care (01) | DRG 765 ==
LOC: LD 20:02 → OB 01-30 19:27
PROVIDERS: ADMIT Obstetrics & Gynecology; ATTEND Obstetrics & Gynecology
PROC: 10D00Z1 Extraction of Products of Conception, Low, Open Approach (ICD-10-PCS; principal; 2018-01-30)
PROC: 10907ZC Drainage of Amniotic Fluid, Therapeutic from Products of Conception, Via Natural or Artificial Opening (ICD-10-PCS; 2018-01-30)
PROC: 3E0234Z Introduction of Serum, Toxoid and Vaccine into Muscle, Percutaneous Approach (ICD-10-PCS; 2018-01-31)
PROC: 3E0334Z Introduction of Serum, Toxoid and Vaccine into Peripheral Vein, Percutaneous Approach (ICD-10-PCS; 2018-02-01)
DX: O48.0 Post-term pregnancy (principal); O75.3 Other infection during labor; A41.81 Sepsis due to Enterococcus; Z3A.41 41 weeks gestation of pregnancy; O61.9 Failed induction of labor, unspecified; Z37.0 Single live birth; Z88.8 Allergy status to other drugs, medicaments and biological substances; Z83.3 Family history of diabetes mellitus; Z82.49 Family history of ischemic heart disease and other diseases of the circulatory system; O98.82 Other maternal infectious and parasitic diseases complicating childbirth; N13.6 Pyonephrosis; O64.0XX0 Obstructed labor due to incomplete rotation of fetal head, not applicable or unspecified; Z23 Encounter for immunization
CPT/HCPCS: 36415; 71046; 76770; 81001; 82565; 83615; 84439; 84443; 84450; 84460; 84550; 85014; 85018; 85025; 85027; 85461; 86592; 86850; 86900; 86901; 87040; 87076; 87086; 87186; 90471; 90715; 93005; 93010; 99211; G0463; J0690; J1885; J2270; J2590; J2765; J2790; J3010; J7030; J7120; J7121

== ENCOUNTER 2022-03-04 12:07 | Outpatient (CLI) | payer MEDICAID | END 2022-03-04 12:08 | disposition home or self-care (01) | LOC: LAB 12:07 | PROVIDERS: ATTEND Obstetrics & Gynecology | DX: O26.893 Other specified pregnancy related conditions, third trimester (principal); Z67.11 Type A blood, Rh negative; Z3A.38 38 weeks gestation of pregnancy | CPT/HCPCS: 86850; 86900; 86901; 96372; J2790 ==

== ENCOUNTER 2022-03-16 07:30 | Inpatient (IN) | payer MEDICAID ==
[2022-03-16] MEDS ORDERED: FAMOTIDINE 20 MG/2 ML INJ IV NR (10:03)
[2022-03-16] MEDS ORDERED: GENTAMICIN 120 MG in SODIUM CHLORIDE 0.9% 100 ML IV NR (10:03)
[2022-03-16] MEDS ORDERED: METOCLOPRAMIDE 10 MG/2 ML INJ IV NR (10:03)
[2022-03-16] MEDS: LACTATED RINGERS 1,000 ML IV SCH ×2 (10:15→13:09)
[2022-03-16] MEDS ORDERED: GENTAMICIN/NS 120MG/100ML 120 MG/100 ML BAG IV SCH (11:00)
[2022-03-16] MEDS ORDERED: OXYTOCIN DRIP 30 UNITS/500 ML BAG IV SCH ×2 (11:00→15:00)
[2022-03-16] MEDS ORDERED: BICITRA ORAL LIQD 30ML PO NR (11:00)
[2022-03-16 11:47] LABS: Basophils % (Auto) 0.5 % (0.0-1.8); Eosinophils # (Auto) 0.1 K/mm3 (0.0-0.4); Eosinophils % (Auto) 0.7 % (0.0-4.3); Hematocrit 33.7 % (30.3-42.9); Hemoglobin 11.4 gm/dl (10.1-14.3); Lymphocytes # (Auto) 1.6 K/mm3 (1.2-5.4); Lymphocytes % (Auto) 21.7 % (13.4-35.0); Mean Corpuscular HGB Conc 34 % (30-34); Mean Corpuscular Volume 80 fl (79-97); Monocytes # (Auto) 0.4 K/mm3 (0.0-0.8); Monocytes % (Auto) 5.1 % (0.0-7.3); Platelet Count 185 K/mm3 (140-440); Red Blood Count 4.19 M/mm3 (3.65-5.03); Red Cell Distribution Width 14.8 % (13.2-15.2)
--- NOTE | 2022-03-16 13:18 | Anesthesia Day of Surgery ---
Anesthesia Day of Surgery - Day of Surgery Patient Examined: Yes Patient H&P Reviewed: Yes Patient is NPO: Yes
--- NOTE | 2022-03-16 13:19 | Anesthesia Consultation ---
Anesthesia Consult and Med Hx Date of service: 03/16/22 - Airway Anesthetic Teeth Evaluation: Poor ROM Head & Neck: Adequate Mental/Hyoid Distance: Adequate Mallampati Class: Class II Intubation Access Assessment: Probably Good - Pulmonary Exam CTA: Yes - Cardiac Exam Cardiac Exam: RRR - Pre-Operative Health Status ASA Pre-Surgery Classification: ASA2 Proposed Anesthetic Plan: Epidural, Spinal - Pulmonary Hx Smoking: No Hx Asthma: No COPD: No Hx Pneumonia: No - Cardiovascular System Hx Hypertension: No - Central Nervous System Hx Seizures: No Hx Psychiatric Problems: No - Endocrine Hx Renal Disease: No Hx End Stage Renal Disease: No Hx Hypothyroidism: No Hx Hyperthyroidism: No - Hematic Hx Anemia: No Hx Sickle Cell Disease: No - Other Systems Hx Alcohol Use: No Hx Substance Use: No Hx Obesity: Yes
[2022-03-16] MEDS ORDERED: BUPIVACAINE/PF (0.5%) 5 MG/1 ML 30 ML VIAL INFILTRATI ONE (13:30)
--- NOTE | 2022-03-16 14:26 | History and Physical Report ---
History of Present Illness Date of examination: 03/16/22 Date of admission: 03/16/22 09:19 Chief complaint: Schedule History of present illness: 26-year-old -0-0-1 at 40+0 weeks who presents for scheduled delivery. The patient has a history of a prior and has declined trial of labor Past History Past Medical History: no pertinent history Past Surgical History: section Social history: - Obstetrical History Expected Date of Delivery: 03/16/22 Actual Gestation: 40 Week(s) 0 Day(s) : 2 Para: 1 Hx # Term Pregnancies: 1 Number of Pregnancies: 0 Spontaneous Abortions: 0 Induced : 0 Number of Living Children: 1 Medications and Allergies Allergies Allergy/AdvReac Type Severity Reaction Status Date / Time ceftazidime pentahydrate Allergy Severe Seizure Verified 12/16/17 16:17 [From [facility]] Home Medications Medication Instructions Recorded Confirmed Last Taken Type Cyclobenzaprine [Flexeril] 10 mg PO TID PRN #10 tablet 04/30/17 01/30/18 Unknown Rx Ibuprofen [Motrin] 800 mg PO Q8HR PRN #25 tablet 04/30/17 01/30/18 Unknown Rx Ondansetron [Zofran Odt] 4 mg PO Q8H PRN #10 tab.rapdis 04/30/17 01/30/18 Unknown Rx Acetaminophen 650 mg PO QID PRN #60 tablet 08/23/17 01/30/18 Unknown Rx Albuterol Mdi (or & Nicu Only) 2 puff IH QID PRN #1 inhalation 08/23/17 01/30/18 Unknown Rx [ProAir HFA Inhaler] Azithromycin [Zithromax Z-ZANDER] 250 mg PO DAILY #6 tab 08/23/17 01/30/18 Unknown Rx predniSONE [Deltasone] 40 mg PO QDAY #10 tab 08/23/17 01/30/18 Unknown Rx Ibuprofen [Motrin] 600 mg PO Q8H PRN #30 tablet 01/30/18 Unknown Rx oxyCODONE /ACETAMINOPHEN [Percocet 1 tab PO Q6HR PRN #30 tablet 01/30/18 Unknown Rx 5/325] Active Meds: Active Medications Lactated Ringer's (Lactated Ringers) 1,000 mls @ 2,250 mls/hr IV PREOP LAURE Stop: 03/17/22 10:42 Last Admin: 03/16/22 13:09 Dose: 2,250 mls/hr Oxytocin/Sodium Chloride (Pitocin/Ns 30 Unit/500ml) 30 units in 500 mls @ 0 mls/hr IV TITR LAURE; Protocol Gentamicin Sulfate/Sodium Chloride (Gentamicin/Ns 120mg/100ml) 120 mg in 100 mls @ 200 mls/hr IV PREOP LAURE Stop: 03/16/22 18:00 Review of Systems All systems: negative Genitourinary: no leakage of fluid, no contractions - Vital Signs Vital signs: Vital Signs Temp Pulse Resp BP 98.5 F 101 H 16 118/76 03/16/22 10:39 03/16/22 10:39 03/16/22 10:39 03/16/22 10:39 Temp Pulse Resp BP Pulse Ox 98.5 F 101 H 16 118/76 03/16/22 10:39 03/16/22 10:40 03/16/22 10:39 03/16/22 10:40 - Physical Exam Breasts: Positive: deferred Cardiovascular: Regular rate Lungs: Positive: Clear to auscultation Abdomen: Positive: normal appearance Results Result Diagrams: 03/16/22 09:55 Abnormal lab results 03/16/22 Range/Units 09:55 MCH 27 L (28-32) pg Seg Neutrophils % 72.0 H (40.0-70.0) % All other labs normal. Assessment and Plan - Patient Problems (1) deliv due to previous difficult deliv, faizan akers Current Visit: Yes Status: Acute Plan to address problem: Will proceed with the scheduled delivery
--- NOTE | 2022-03-16 14:29 | Procedure Note ---
OB Delivery Note - Delivery Date of Delivery: 03/16/22 Surgeon: KORY CHAMBERS Estimated blood loss: other (Q. BL 768 mL) - Section Preop diagnosis: repeat Postop diagnosis: same section procedure: section, repeat low transverse Disposition: PACU Complications: none - Infant A at 1 minute: 9 at 5 minutes: 9 (Weight 7 pounds 10 ounces) Gender: Female
[2022-03-16] MEDS ORDERED: ACETAMINOPHEN 325 MG TAB PO PRN (14:30)
[2022-03-16] MEDS ORDERED: MORPHINE 4 MG/1 ML INJ IV PRN (14:30)
[2022-03-16] MEDS ORDERED: ONDANSETRON 4 MG/2 ML INJ IV PRN (14:30)
[2022-03-16] MEDS ORDERED: oxyCODONE /ACETAMINOPHEN 5-325MG TAB PO PRN (14:30)
[2022-03-16] MEDS ORDERED: NALOXONE 0.4 MG/1 ML INJ IV PRN (14:30)
[2022-03-16] MEDS ORDERED: WITCH HAZEL/ GLYCERIN PAD TP PRN (14:30)
[2022-03-16] MEDS ORDERED: KETOROLAC 30 MG/1 ML INJ IV PRN (14:30)
[2022-03-16] MEDS ORDERED: IBUPROFEN 600 MG TAB PO PRN (14:30)
[2022-03-16] MEDS ORDERED: LANOLIN/ZINC/DIMETHICONE (LANSINOH) 7 GM TP PRN (14:30)
--- NOTE | 2022-03-16 14:30 | Operative Report ---
Operative Report Operative Report: Date of surgery: March 16, 2022 Preoperative diagnosis: at 40+0 weeks; previous delivery Postoperative diagnosis: Same as above Procedure: Repeat low transverse delivery Surgeon: Danae Galindo M.D. Anesthesia: Regional Estimated blood loss: Q. BL 768 mL IV fluids: 1600 mL Urine output: 150 mL Findings: Liveborn female with Apgars of 9 and 9 weight 7 pounds 10 ounces Indications: 26-year-old -0-0-1 at 40+0 weeks who presents for a scheduled repeat delivery. Procedure: The patient was taken to the operating room and given regional anesthesia without complication. She was prepped and draped in a normal sterile fashion. A Pfannenstiel skin incision was made down to layer the fascia which was nicked in the midline extended laterally with the Bovie cautery. The superior aspect of the rectus fascia was grasped with Paris clamps x2 and the rectus muscles off sharply. This was done in inferior fashion as well. The rectus muscle midline and peritoneum entered bluntly. An Mohinder retractor was then inserted. A bladder blade was placed. The vesicouterine peritoneum was then entered sharply with Metzenbaum scissors. A bladder flap was created digitally. A low transverse uterine incision was then made and extended digitally. There was clear fluid upon entry into the uterine cavity. The head was delivered through the incision with fundal pressure. The cord was clamped and cut x2 and was passed off to pediatrics. The placenta was then manually extracted. The uterus was then exteriorized and cleared of clots and debris. The uterine incision was then closed in a running locked fashion with 0 Vicryl additional imbricating stitch was applied for 2 layer closure. The posterior cul-de-sac was then copiously irrigated. The uterus was replaced back into the abdomen and pelvis were the gutters were then irrigated. The Mohinder retractor was then removed. The peritoneum was then reapproximated with 3-0 Vicryl incorporating the rectus muscle. The fascia was then closed with 0 Vicryl in a running fashion. The skin was then reapproximated with 3-0 Monocryl on a Mahad needle subcuticular fashion. Steri-Strips to place across the incision and a Crede procedures performed at the end of the surgery. A pressure dressing was applied to the incision. The surgery productive of a liveborn female infant with Apgars of 9 and 9 weight 7 pounds 10 ounces. The patient was taken to the recovery room in stable condition. All sponge laps and needle counts correct x2.
[2022-03-16] MEDS ORDERED: ONDANSETRON 4 MG/2 ML INJ ONE ×2 (14:47)
[2022-03-16] MEDS ORDERED: LACTATED RINGERS 1,000 ML ONE (14:59)
[2022-03-16] MEDS ORDERED: D5W/LACTATED RINGERS 1,000 ML IV SCH (15:00)
[2022-03-16] MEDS ORDERED: WATER FOR IRRIG STERILE 1,500 ML BOTTLE IR ONE (15:01)
[2022-03-16] MEDS ORDERED: SODIUM CHLORIDE 0.9% IRR 1,500 ML BOTTLE IR ONE (15:01)
[2022-03-16] MEDS ORDERED: dexAMETHasone 20 MG/5 ML VIAL ONE (15:10)
[2022-03-16] MEDS ORDERED: PHENYLEPHRINE 10 MG/1 ML INJ SDV ONE (15:11)
--- NOTE | 2022-03-16 15:51 | Progress Note ---
Spinal Anesthesia Block - Spinal Anesthesia Block Start Time: 14:33 Stop Time: 14:41 Performed by:: MOR WILLOUGHBY Procedure: Patient IDed, H&P reviewed, all questions and concerns were answered, and consent was signed. Timeout was performed at bedside. Patient in sitting position. Sterile prep and drape was performed. [3] ml of 1% lidocaine skin wheal at L[3]- L [4]. Needle introducer advanced. 25 gauge spinal needle advanced. Clear, free flowing CSF. negative blood, negative paresthesia. Spinal dose given. All needles removed. Patient tolerated procedure.
--- NOTE | 2022-03-16 15:53 | Progress Note ---
Regional Anesthesia Block - Regional Anesthesia Block Start Time: 15:40 Stop Time: 15:41 Performed By:: MOR WILLOUGHBY Procedure: Patient consented for TAP block for post surgical pain management. Patient identified, monitors placed, and time out performed. TAP identified bilaterally via ultrasound. Skin prepped bilaterally with [chlorhexidine] and [22g stimuplex] needle advanced to the TAP. [Marcaine 0.22% 30ml] injected under ultrasound guidance on the [left] side. [Marcaine 0.22% 30ml] injected under ultrasound guidance on the [right] side. Negative aspiration every 5mL, No change in heart rate or rhythm. Patient tolerated the procedure well. No apparent complications seen.
[2022-03-17 01:05] LABS: Hematocrit 32.6 % (30.3-42.9)
--- NOTE | 2022-03-17 08:02 | Progress Note ---
Assessment and Plan A: POD#1 s/p repeat at term P: Routine care Abdominal Binder Subjective - Subjective Date of service: 03/17/22 Principal diagnosis: POD#1 s/p repeat Interval history: Pt feeling well. + Flatus. Decreasing lochia. Voiding without difficulty. Patient reports: appetite normal, voiding normally, pain well controlled, flatus, ambulating normally : doing well Objective - Vital Signs Latest vital signs: Vital Signs Temp Pulse Resp BP BP Pulse Ox Pulse Ox 03/17/22 01:19 98.0 F 76 18 114/71 97 03/16/22 22:00 98 03/16/22 20:59 97.9 F 97 H 18 113/76 98 03/16/22 17:10 97.7 F 78 18 92/55 99 99 03/16/22 16:45 78 16 100/61 97 03/16/22 16:30 97.7 F 86 20 106/59 97 03/16/22 16:15 79 17 101/41 97 03/16/22 16:00 88 19 103/47 97 03/16/22 15:55 92 H 13 102/69 98 03/16/22 15:50 86 20 88/37 97 03/16/22 15:45 97.7 F 67 13 100/53 98 03/16/22 10:40 101 H 118/76 03/16/22 10:39 98.5 F 101 H 16 118/76 Intake and Output 03/16/22 03/17/22 03/17/22 22:59 06:59 14:59 Intake Total 1940 300 Output Total 250 2000 Balance 1690 -1700 Intake: IV 1700 Oral 240 300 Output: Urine 250 1200 Indwelling Catheter 1000 Void 200 Urine/Stool Mix 800 Other: Total, Intake Amount 240 300 Total, Output Amount 1200 Estimated Blood Loss 768 - Exam Breasts: Present: deferred Abdomen: Present: soft Uterus: Present: fundal height at umbilicus Extremities: Present: edema (trace) Incision: Present: dressed - Labs Labs: Abnormal lab results 03/16/22 Range/Units 09:55 MCH 27 L (28-32) pg Seg Neutrophils % 72.0 H (40.0-70.0) %
--- NOTE | 2022-03-17 11:19 | Post Anesthesia Evaluation ---
- Post Anesthesia Evaluation Patient Participated: Yes Airway Patent: Yes Stable Respiratory Function: Yes Nausea/Vomiting: No Temp > 96.8F: Yes Pain Manageable: Yes Adequeate Hydration: Yes Anesthesia Complications: No Block Receding Appropriately: Yes Patient on Ventilator: No
[2022-03-17] MEDS ORDERED: KETOROLAC 30 MG/1 ML INJ IV PRN (13:45)
[2022-03-17] MEDS ORDERED: KETOROLAC 30 MG/1 ML INJ IV SCH (14:00)
[2022-03-17] MEDS ORDERED: LACTULOSE 20 GM/30 ML ORAL LIQD PO SCH (22:00)
--- NOTE | 2022-03-18 08:01 | Progress Note ---
Assessment and Plan - Patient Problems (1) deliv due to previous difficult deliv, deliv, curr hospitaliz Current Visit: Yes Status: Acute Plan to address problem: Patient doing well Discharge home Subjective - Subjective Date of service: 03/18/22 Principal diagnosis: POD#1 s/p repeat Interval history: The patient is currently without any significant complaints. Her pain is well controlled and she is tolerating regular diet. She has voided after removal of her [place]. Patient reports: appetite normal, voiding normally, pain well controlled [place]: doing well Objective - Vital Signs Latest vital signs: Vital Signs Temp Pulse Resp BP BP Pulse Ox Pulse Ox 03/18/22 00:00 98.7 F 79 16 119/68 03/17/22 17:22 97.5 F L 03/17/22 16:09 100.0 F H 103 H 16 127/87 99 03/17/22 12:26 99.4 F 88 16 126/75 99 03/17/22 08:35 98 Intake and Output 03/17/22 03/18/22 03/18/22 22:59 06:59 14:59 Intake Total 200 300 Balance 200 300 Intake: Intake, Free Water 200 300 Other: # Voids Void 1 1 - Exam Incision: Present: dressed
--- NOTE | 2022-03-18 08:02 | Discharge Summary ---
Providers - Providers Date of Admission: 03/16/22 09:19 Date of discharge: 03/18/22 Attending physician: KORY CHAMBERS Primary care physician: KORY CHAMBERS Hospitalization Reason for admission: section Delivery: Procedure: section, repeat low transverse Discharge diagnosis: IUP at term delivered Hospital course: The patient was admitted for scheduled . Please see operative note for details of surgery. Postoperative course was uneventful. Condition at discharge: Good Disposition: 01 HOME / SELF CARE / HOMELESS - Discharge Diagnoses (1) deliv due to previous difficult deliv, deliv, curr hospitaliz Status: Acute Plan - Discharge Medications Prescriptions: Ibuprofen [Motrin] 800 mg PO Q8HR PRN #60 tablet PRN Reason: Pain , Severe (7-10) oxyCODONE /ACETAMINOPHEN [Percocet 5/325] 1 tab PO Q6HR PRN #30 tablet PRN Reason: Pain - Provider Discharge Summary Activity: no sex for 6 weeks, no heavy lifting 4 weeks, no strenuous exercise Diet: routine Instructions: routine Additional instructions: [] Smoking cessation referral if applicable(refer to patient education folder for contact #) [] Refer to [facility] Booklet Call your doctor immediately for: * Fever > 100.5 * Heavy vaginal bleeding ( >1 pad per hour) * Severe persistent headache * Shortness of breath * Reddened, hot, painful area to leg or breast * Drainage or odor from incision. * Keep incision clean and dry at all times and follow doctor's instructions regarding bathing/showering Schedule incision check in 2-week - Follow up plan
[2022-03-18 12:58] VITALS: BP 124/85
== END 2022-03-18 12:00 | disposition home or self-care (01) | DRG 766 ==
LOC: APU 09:19 → OB 17:03
PROVIDERS: ADMIT Obstetrics & Gynecology; ATTEND Obstetrics & Gynecology
PROC: 10D00Z1 Extraction of Products of Conception, Low, Open Approach (ICD-10-PCS; principal; 2022-03-16)
PROC: 3E0T3BZ Introduction of Anesthetic Agent into Peripheral Nerves and Plexi, Percutaneous Approach (ICD-10-PCS; 2022-03-16)
DX: O34.211 Maternal care for low transverse scar from previous cesarean delivery (principal); Z3A.40 40 weeks gestation of pregnancy; Z20.822 Contact with and (suspected) exposure to COVID-19; Z37.0 Single live birth; Z88.8 Allergy status to other drugs, medicaments and biological substances
CPT/HCPCS: 36415; 85014; 85018; 85025; 85461; 86592; 86850; 86870; 86900; 86901; G0378; J3490; J7060; J7121; J1100; J2370; J2405; J2765; J7120; U0003